=== PATIENT | female | born 1960 | race Caucasian/White ===

== ENCOUNTER 2020-10-20 10:45 | Emergency (ER) | payer OTHER ==
[2020-10-20] MEDS ORDERED: NAPROXEN500 MG PO (12:31)
[2020-10-20] MEDS ORDERED: TRAMADOL HCL50 MG PO (12:41)
[2020-10-20] MEDS ORDERED: ULTRAM50 MG PO (13:02)
== END 2020-10-20 13:03 | disposition home or self-care (01) ==
LOC: FER 10:45
DX: S80.01XA Contusion of right knee, initial encounter (principal); S20.214A Contusion of middle front wall of thorax, initial encounter; E11.9 Type 2 diabetes mellitus without complications; F17.200 Nicotine dependence, unspecified, uncomplicated; W19.XXXA Unspecified fall, initial encounter; Y92.89 Other specified places as the place of occurrence of the external cause; Y99.0 Civilian activity done for income or pay
CPT/HCPCS: 71046; 73560